=== PATIENT | male | born 1965 | race Caucasian/White ===

== ENCOUNTER 2019-04-25 11:36 | Day surgery (SDC) | payer OTHER ==
[~2019-04-25] VITALS: Ht 175.3 cm; Wt 116.2 kg
[2019-04-25 13:28] VITALS: Ht 175.3 cm; Wt 116.2 kg
[2019-04-25] MEDS ORDERED: ASPI-817 PO (13:43)
[2019-04-25] MEDS ORDERED: BENAZEPRIL PO (13:43)
[2019-04-25] MEDS ORDERED: HYDROCHLOROTHIAZIDE PO (13:43)
[2019-04-25] MEDS ORDERED: METFORMIN PO (13:43)
[2019-04-25] MEDS ORDERED: GEMFIBROZIL PO (13:43)
[2019-04-25] MEDS ORDERED: AMLODIPINE PO (13:43)
[2019-04-25 14:20] VITALS: BP 131/71; PULSE 69; RESP 18
[2019-04-25] MEDS ORDERED: PROPOFOL 20 ML ONE (15:04)
[2019-04-25] MEDS ORDERED: FENTAnyl 50 MCG/ML VIAL ONE (15:04)
--- NOTE | 2019-04-25 15:04 | PREAC ---
Date/Time of Note Date/Time of Note DATE: 04/25/19 TIME: 15:03 Anesthesia Eval and Record Evaluation Time Pre-Procedure Interview DATE: 04/25/19 TIME: 15:03 Age 53 Sex male NPO: 8 hrs Preoperative diagnosis costipation Planned procedure colonoscopy Past Medical History Past Medical History: Includes Cardio: HTN, Dyslipidemia Endo: Diabetes Surgery & Anesthesia Issues No known issue Meds Anticoagulation: No Beta Marie within 24 hr: No Reason Beta Marie not given: Pt. not on B-Marie Reported Medications [Hydrochlorothiazide] No Conflict Check, PO 04/25/19 [Gemfibrozil] No Conflict Check, PO 04/25/19 Aspirin* (Aspirin* EC) 81 Mg Tablet.dr, 81 MG PO DAILY, TAB 04/25/19 [Benazepril] No Conflict Check, PO 04/25/19 [Amlodipine] No Conflict Check, PO 04/25/19 [Metformin] No Conflict Check, PO 04/25/19 Meds reviewed: Yes Allergies Coded Allergies: No Known Allergy (Unverified , 04/25/19) Allergies Reviewed: Yes Labs/Studies Labs Reviewed: Reviewed by anesthesiologist test: N/A Studies: ECG (n/a), CXR (n/a) Pre-procedure Exam Last vitals Vital Signs Date Temp Pulse Resp B/P (MAP) Pulse Ox O2 O2 Flow FiO2 Time Delivery Rate 04/25/19 97.8 69 18 131/71 98 Room Air 14:20 (91) Airway: Adequate mouth opening Mallampati: Mallampati I Teeth: Normal Lung: Normal Heart: Normal ASA Physical Status ASA physical status: 2 Emergency: None Planned Anesthetic General/MAC: MAC Pre-operative Attestations Prior to commencing anesthesia and surgery, the patient was re-evaluated, there was verification of: *The patient's identity *The results of appropriate recent lab work and preoperative vital signs *The above evaluation not changing prior to induction *Anesthetic plan, risk benefits, alternative and complications discussed with patient/family; questions answered; patient/family understands, accepts and wishes to proceed. LARRY CHOE MD Apr 25, 2019 15:04
--- NOTE | 2019-04-25 18:16 | PAC ---
Date/Time of Note Date/Time of Note DATE: 04/25/19 TIME: 18:16 Post-Anesthesia Notes Post-Anesthesia Note Last documented vital signs Vital Signs Date Temp Pulse Resp B/P (MAP) Pulse Ox O2 O2 Flow FiO2 Time Delivery Rate 04/25/19 97.8 69 18 131/71 98 Room Air 14:20 (91) Activity: WNL Respiratory function: WNL Cardiovascular function: WNL Mental status: Baseline Pain reasonably controlled: Yes Hydration appropriate: Yes Nausea/Vomiting absent: No LARRY CHOE MD Apr 25, 2019 18:16
== END 2019-04-25 15:30 | disposition home or self-care (01) ==
LOC: GIL 11:36
PROVIDERS: ATTEND Internal Medicine Gastroenterology
DX: K57.30 Diverticulosis of large intestine without perforation or abscess without bleeding (principal); E11.9 Type 2 diabetes mellitus without complications; I10 Essential (primary) hypertension; Z79.82 Long term (current) use of aspirin; Z79.84 Long term (current) use of oral hypoglycemic drugs
CPT/HCPCS: 45378; 82962; J3010; Z7610